=== PATIENT | female | born 1950 | race Caucasian/White ===

== ENCOUNTER → 2016-10-06 | Outpatient (CLI) | payer MEDICARE, OTHER ==
[~2016-10-06] MED LIST: ALBUAER3 INH; CHLO7.5 PO; ESTR1TAB PO; IPRAAER INH; PANT40TA3 PO; ZOLO100T PO
[2016-10-06 13:31] LABS: BACTERIA, URINE FEW /hpf; BLOOD, URINE NEG (NEG); COMMENT (UR) CULT NOT INDICATED; CULTURE IF INDICATED CULT NOT INDICATED; GLUCOSE,URINE NEG (NEG); KETONE, URINE NEG (NEG); NITRITE,URINE NEG (NEG); PH, URINE 5.5 (5.0-8.5); URINE COLOR LIGHT-YELLOW (YELLW/STRAW)
[2016-10-06 13:33] LABS: INTERNATIONAL NORMALIZED RATIO 0.9 RATIO
[2016-10-06 13:46] LABS: BICARBONATE 28.2 MEQ/L (21.0-32.0); POTASSIUM 4.2 MEQ/L (3.5-5.1)
--- NOTE | 2016-10-06 14:31 | RADRPT ---
EXAM DATE/TIME: 10/06/2016 14:05 [place] COMPARISON: No previous studies available for comparison. INDICATIONS : Evaluate for pneumonia, pneumothorax or communicable disease. Pre op arthroscopy left knee. MEDICAL HISTORY : Chronic obstructive pulmonary disease. SURGICAL HISTORY : None. ENCOUNTER: Initial ACUITY: 1 day PAIN SCORE: 0/10 LOCATION: Bilateral chest FINDINGS: Frontal and lateral views of the chest demonstrate normal-sized cardiac silhouette. There is intersti tial prominence with lucency in the upper lung zones. No effusion, consolidation, or pneumothorax is identified. No pulmonary nodule is seen. Bones and soft tissues demonstrate no acute finding. CONCLUSION: Background lung changes characteristic of obstructive airways disease/emphysema. Otherwise, no acute finding is identified. Som Turner MD on October 06, 2016 at 14:28 Board Certified Radiologist. This report was verified electronically.
--- NOTE | 2016-10-07 16:21 | EKG ---
Date Performed: 10/06/2016 Time Performed: 13:03:57 PTAGE: 66 years EKG: Sinus rhythm POSSIBLE LEFT ATRIAL ENLARGEMENT POOR R WAVE PROGRESSION CONSIDER ANTEROSEPTAL AR-AGE INDETERMINATE BORDERLINE ECG NO PREVIOUS TRACING DOCTOR: Ketan Shelby Interpretating Date/Time 10/07/2016 16:19:20
== END ==
LOC: CPRE 12:20
PROVIDERS: ATTEND Orthopaedic Surgery
DX: Z01.812 Encounter for preprocedural laboratory examination (principal); Z01.811 Encounter for preprocedural respiratory examination; Z01.810 Encounter for preprocedural cardiovascular examination; S83.242D Other tear of medial meniscus, current injury, left knee, subsequent encounter; R94.31 Abnormal electrocardiogram [ECG] [EKG]; X58.XXXA Exposure to other specified factors, initial encounter
CPT/HCPCS: 36415; 71020; 80048; 81001; 85610; 93005

== ENCOUNTER → 2016-11-05 | Day surgery (SDC) | payer MEDICARE, OTHER ==
--- NOTE | 2016-10-09 12:23 | MH ---
cc: SEGUN DIXON DATE OF ADMISSION 11/05/2016 ADMISSION DIAGNOSIS A medial meniscus tear of her left knee, chondromalacia patellae left knee, effusion left knee, Silvestre's cyst left knee and pain of the left knee. HISTORY The patient is a 66-year-old white female who has experienced left knee pain of at least 10 years duration. She had noted the onset of intermittent soreness about the medial aspect of her left knee within the previous 10 years that would occur several times annually for which she did not seek evaluation or treatment. Her symptoms would spontaneously resolve and she would continue with her normal activities, but within the past year, she began to note recurrent episodes of pain about the medial aspect of her left knee unrelated to any current injury or unusual activity. More recently, her symptoms did not tend to resolve as she had experienced in the past for which she was noting an intermittent grinding like sensation, but not noting any significant swelling or giving way. Her symptoms had limited her activities throughout the course of the day for which she was taking Advil without significant relief being noted. She presented to the undersigned physician in August of this year and at that time x-ray studies of her left knee were without evidence of any acute bony abnormality. The patient was diagnosed as having a synovitis for which she was prescribed diclofenac 75 mg twice daily and followed on an outpatient basis. Unfortunately, her symptoms lingered thereafter and the patient subsequently underwent additional diagnostic testing which included an MRI scan of her left knee, the results of which identified a moderate-sized horizontal tear of the posterior horn and body of the medial meniscus with the lateral meniscus being intact. There is mild to moderate central superior patellar chondromalacia and a moderate sized joint effusion with a small Silvestre's cyst. The patient remained symptomatic with pain about her left knee radiating into the popliteal region for which she returned to the office in further disposition. The pros and cons of continuing with conservative management versus operative intervention that would involve arthroscopic surgery were outlined in detail. The patient felt that her symptoms had progressed to a point in time where she was ready to proceed accordingly and in compliance with her wishes she is currently being admitted in order that the above be accomplished. PAST MEDICAL HISTORY Hospitalizations and surgeries have included: 1. Tonsillectomy 2. Abdominal hysterectomy 3. Colonoscopy The patient's medical illnesses include: 1. Hypertension 2. Acid reflux 3. Irritable bowel syndrome MEDICATIONS Her current medications: 1. Zoloft 100 mg daily 2. Estradiol 0.5 mg daily 3. Clorazepate 3.75 mg daily 4. ProAir approximately four times daily 5. Combivent four times daily 6. Pantoprazole 40 mg daily 7. Regenemax four drops daily for hair loss 8. Nicotine patch 21 mg daily ALLERGIES THE PATIENT INDICATES A DRUG ALLERGY TO SULFA AND ERYTHROMYCIN WHICH HAS BEEN ASSOCIATED WITH AN ACHING SENSATION. REVIEW OF SYSTEMS She wears glasses. Has had a history of sinus headaches. No seizure or syncope. Sinus congestion related to environmental irritants. No epistaxis. Auditory acuity intact. No tinnitus. No bleeding gums or dysphagia. She has complete upper dentures. No history of pneumonia or tuberculosis. No angina or heart disease. She is medically managed for hypertension. Her appetite is good. Bowel movements are regular. There has been no hepatitis, gallbladder disease or ulcers. She has a positive history of hemorrhoids. Previous urinary tract infection. No kidney stones. No fractures. No psychiatric illness. Her remaining review of systems is unremarkable and noncontributory. FAMILY HISTORY 48 years, 70 years of age in good health. One son and one daughter, the son with a history of some type of bone disorder, possibly similar to osteogenesis imperfecta for which he is described as being handicapped. Family history is otherwise positive for hypertension, diabetes and cancer as related to exposure to agent orange. 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 She completed a high school education. She admits to greater than 53 years use of tobacco averaging between one half to one pack daily. Denies ethanol consumption. PHYSICAL EXAMINATION Height 5 feet 8 inches, weight 155 pounds. GENERAL: An alert, oriented and responsive 66-year-old white female who sits quietly upon examination table with no obvious distress. HEAD, EYES, EARS, NOSE AND THROAT: Pupils are equally round and reactive to light. Extraocular movements full. Sclerae clear. External nares clear. External auditory canals clear. Edentulous in the maxillary distribution. Semi-edentulous in the mandibular distribution. Mucous membranes pink and moist. Pharynx clear. NECK: Supple. There is mild discomfort at the extremes of rotation that the patient describes being chronic in nature. Carotid pulse bilaterally. Trachea midline. Thyroid without enlargement. LUNGS: Clear to auscultation and percussion. No CVA tenderness. No discomfort throughout the dorsal lumbar spine. HEART: Regular rhythm. No murmur or gallop. ABDOMEN: Soft, nontender. Bowel sounds present. PELVIC: Per primary care physician. EXTREMITIES: Left knee, there is a mild fullness about the knee consistent with an intra-articular effusion. Medial joint line tenderness without palpable deformity. Apprehension and compression sign negative. Guarded mobility in the 110 degrees range of flexion. No collateral ligamentous instability. Mild tenderness within the popliteal region. Melida test and drawer sign negative. Pivot shift and Bandar sign positive for medial compartment pain. Straight-leg raising unremarkable at 80 degrees. Mild antalgic gait. NEUROLOGIC: Cranial nerves II-XII grossly intact. IMPRESSION Medial meniscus tear left knee, chondromalacia patellae left knee, effusion left knee, Silvestre's cyst left knee and pain of the left knee. PLAN Arthroscopic surgery and possible arthrotomy left knee. The nature of the planned surgical procedure, the potential complications and risks associated, the expectations of surgery and the consent form were thoroughly reviewed with the patient in the presence of her prior to admission to hospital. Melanie has indicated her full understanding regarding all of the above and given consent to proceed with treatment as outlined. Medical evaluation and clearance for surgery will be completed by her primary care physician Dr. Pedro Mc. ADDENDUM The patient had been recently scheduled to be admitted to the hospital for a history of a medial meniscus tear of her left knee associated with chondromalacia patellae, effusion and Silvestre cyst as well as pain of the left knee with the anticipation of undergoing arthroscopic surgery. Prior to that admission, it was recommended by her primary care physician Dr. Batista that she undergo a cardiac evaluation for which this evaluation was completed by Dr. Barr for which the patient was noted to be at a low cardiac risk for operative intervention and was cleared to proceed with the planned surgery as had been noted. The patient thereafter expressed her desire to proceed with the procedure as had previously been planned, and in compliance with her wishes she was rescheduled for admission at this time in order that the above be accomplished. The additional details of her history and the pertinent findings regarding her physical examination have remained unchanged. Once again, the nature of the planned surgical procedure, the potential complications and risks associated, the expectations of surgery and the consent form were reviewed for which the patient indicated her full understanding and indicated her desire to proceed accordingly. MD JEANETTE Miller/SANJANA /11:27 AM /9:04 AM
[~2016-11-05] MED LIST changes: +*RESP: ALBUTEROL 2.5 MG/3 ML NEB (PRN) PERIprocedural Use ONLY NEB ONE; +ACETAMINOPHEN 1000 MG/100 ML VIAL IV ONE; +ACETAMINOPHEN/HYDROcodone 325 MG/5 MG TAB PO PRN; +CHLORHEXIDINE GLUCONATE 2 % 1 PACK (2 CLOTHS) TOPICAL PRN; +DEXAMETHASONE SOD PHOS 4 MG/ML VIAL ONE; +DO NOT ADM ANY ANTICOAGULANT DRUGS PRN; +FAMOTIDINE 20 MG/2 ML VIAL ONE; +INSULIN HUMAN REGULAR 1,000 UNITS/10 ML VIAL SQ PRN; +LACTATED RINGER'S 1000 ML INJ 1,000 ML IV ONE; +LACTATED RINGER'S 1000 ML IV PRN; +LIDOCAINE HCL 2% 50 ML VIAL INFIL ONE; +METOCLOPRAMIDE HCL 10 MG/2 ML VIAL ONE; +METOPROLOL TARTRATE 25 MG TAB PO PRN; +MIDAZOLAM HCL 2 MG/2 ML VIAL ONE; +MORPHINE SULFATE 8 MG/ML INJ IM PRN; +NALOXONE HCL 0.4 MG/ML AMP IV ONE; +NEOSTIGMINE 3 MG/3 ML SYR IV ONE; +ONDANSETRON HCL 4 MG/2 ML VIAL IV PUSH ONE; +PHENYLEPH/NS 1000 MCG/10 ML SYR IV ONE; +POVIDONE IODINE 5% (ANTISEPSIS KIT) 4 APPLICATIONS EACH NARE PRN; +POVIDONE IODINE 7.5% SCRUB 118 ML BOTTLE TOPICAL SCH; +PROMETHAZINE INJ 25 MG/ML VIAL IM PRN; +PROPOFOL 200 MG/20 ML AMP IV ONE; +SODIUM CHLORID 0.9% 500 ML IV PRN; +TRIAMCINOLONE ACETONIDE 40 MG/ML VIAL I-ARTICULR ONE; +ceFAZolin 2 GM PREMIX 50 ML IV SCH; +ePHEDrine/NS 25 MG/5 ML SYR IV ONE; +fentaNYL CITRATE 250 MCG/5 ML AMP ONE
[2016-11-05 06:40] VITALS: BP 142/68; PULSE 73; RESP 16; TEMP 98; O2SAT 96
[2016-11-05 14:08] VITALS: BP 107/63; PULSE 62; RESP 18; TEMP 97.4; O2SAT 96
--- NOTE | 2016-11-07 09:09 | MP ---
cc: SEGUN MORATAYA MD DATE OF SURGERY 11/05/2016 PREOPERATIVE DIAGNOSIS Medial meniscus tear of the left knee, chondromalacia patellae left knee, effusion left knee, Silvestre's cyst left knee and pain of the left knee. POSTOPERATIVE DIAGNOSIS Medial meniscus tear of the left knee, chondromalacia patellae left knee, effusion left knee, Silvestre's cyst left knee and pain of the left knee including synovial plica left knee. PROCEDURE Partial medial meniscectomy of the left knee, chondroplasty of the patellofemoral joint and resection of synovial plica left knee. SURGEON Segun Morataya MD ANESTHESIA General by LMA FORMAT Following induction of satisfactory general anesthesia by LMA insertion as completed per the Department of Anesthesia, examination of the left knee did reveal a satisfactory range of motion with no appreciable ligamentous instability. The extremity proper was positioned into the certified surgical first assistant knee sylvester, prepped with Betadine solution and draped into a sterile field in the routine manner. Prior to initiation of the actual procedure, the standard time-out protocol was completed. All parameters were appropriately addressed and confirmed by operating room personnel. Arthroscopic instrumentation was introduced through a stab wound utilizing cannula with sharp and blunt trocar. The inflow irrigation by way of a medial suprapatellar portal. The arthroscope through a lateral parapatellar portal and a probe through a medial parapatellar portal. Examination of the suprapatellar pouch revealed generalized reactive synovitis. A cartilaginous irregularity along the articular surface of the patella was appreciated consistent with localized chondromalacia. Within the medial gutter, there was a prominent synovial plica extending along the lateral femoral condyle from the superior aspect of the suprapatellar region. Within the medial compartment, a complex type tear of the medial meniscus was identified with an extruded fragment being a component of the tear. There was minimal irregularity along the adjacent articular surfaces. The anterior cruciate ligament was identified and noted to be intact. Examination of the lateral compartment was without evidence of internal derangement or appreciable degenerative change. Attention was redirected to the medial compartment. Utilizing a 3.8 mm full radius resector, a partial medial meniscectomy was accomplished as well as limited debridement of the adjacent articular surfaces. The shaver was thereafter oriented into the patellofemoral articulation where generalized chondroplasty of the patellofemoral joint was accomplished. Thereafter, the previously identified synovial plica along the medial gutter was resected in an uncomplicated manner. Upon completion of same, the joint space was thoroughly lavaged and suctioned dry. An intra-articular Kenalog/lidocaine injection was completed. The portal sites were reapproximated with Steri-Strips over which Xeroform gauze and a bulky dry sterile dressing were placed. Anesthesia was discontinued. The patient thus transferred to a hospital stretcher and returned to the recovery room in satisfactory condition having tolerated her operative procedure well. Estimated blood loss was less than 5 cc. MD JEANETTE Miller/SANJANA /11:54 AM /8:55 AM
== END | disposition home or self-care (01) ==
LOC: EDUNIT# 10-17 10:30 → HSDC 06:26
PROVIDERS: ATTEND Orthopaedic Surgery
DX: M23.222 Derangement of posterior horn of medial meniscus due to old tear or injury, left knee (principal); M94.262 Chondromalacia, left knee; M71.22 Synovial cyst of popliteal space [Baker], left knee; M67.52 Plica syndrome, left knee; I10 Essential (primary) hypertension; K21.9 Gastro-esophageal reflux disease without esophagitis; K58.9 Irritable bowel syndrome, unspecified
CPT/HCPCS: 01400; 29881; 94664; J0131; J1100; J2250; J2310; J2370; J2405; J2710; J2765; J3010; J3301; J7120; J7613